=== PATIENT | female | born 1970 | race African-American/Black ===

== ENCOUNTER → 2021-11-19 14:38 | Outpatient (BNVA) | payer OTHER, SELFPAY | PROVIDERS: PCP Nurse Practitioner; Visit Provider Psychiatry & Neurology Neurology | DX: G51.32 Clonic hemifacial spasm, left (principal) | CPT/HCPCS: 64612; J0585 ==

== ENCOUNTER → 2022-03-24 09:26 | Outpatient (BNVA) | payer OTHER, SELFPAY | PROVIDERS: PCP Nurse Practitioner; Visit Provider Psychiatry & Neurology Neurology | DX: G51.32 Clonic hemifacial spasm, left (principal) | CPT/HCPCS: 64612; J0585 ==

== ENCOUNTER → 2022-07-08 09:09 | Outpatient (BNVA) | payer OTHER, SELFPAY | PROVIDERS: PCP Nurse Practitioner; Visit Provider Psychiatry & Neurology Neurology | DX: G51.32 Clonic hemifacial spasm, left (principal) | CPT/HCPCS: 64612; J0585 ==

== ENCOUNTER → 2022-10-31 12:33 | Outpatient (BNVA) | payer OTHER, SELFPAY | PROVIDERS: PCP Nurse Practitioner; Visit Provider Psychiatry & Neurology Neurology | DX: G51.32 Clonic hemifacial spasm, left (principal) | CPT/HCPCS: 64612; J0585 ==

== ENCOUNTER 2023-02-16 12:23 | Outpatient (AMB) | payer OTHER, SELFPAY ==
--- NOTE | 2023-02-16 12:30 | A.OFFVIS_ITS ---
Intake Vital Signs 02/16/23 12:34 Weight 240 lb BP 130/80 Blood Pressure Location Lt brachial Pulse 75 Pulse Source Pulse Oximeter Pulse Oximetry (%) 97 Oxygen Delivery Method Room Air Intake Visit Reasons: Botox (B&B)-confirmed Intake Note: Pt presents today for botox Allergies No Known Allergies Allergy (Verified 02/16/23 12:35) Medication List - Last Reconciled 02/16/23 by Pat Almeida MD amlodipine 10 mg PO DAILY hydrochlorothiazide 25 mg PO DAILY losartan 100 mg PO DAILY ir-fcfnuoq-jsv-iron fm-FA-vitK 18 mg-400 mcg- 25 mcg (One-A-Day Women's Complete(with vit K)) tabs PO onabotulinumtoxinA (Botox) 100 units IM Q90D HPI HPI Comments History of Present Illness Details 52y/o female comes for treatment of her left hemifacial spasm with botox. ??? side effects were explained again and patient agreed to the procedure . - side effects include increased weakness , droopy eyelids weakness of facial muscles etc. ??? Botulinum toxin type A lot no C 1514TC4 expiration November 2024 was diluted with 1 cc of normal saline at a concentration of 10units in 0.1cc. ??? Muscles injected - ??? L lateral canthus 15units ??? Left upper eyelid 5 units ??? Left lateral lower eyelid - 15 units ??? Left zygomaticus major - 10 units ??? Left nasolabial fold - 15 units ??? Left upper lip 5 units left lateral lower lip 5 units left mentalis 10 units ??? Total used- 80units ??? Discarded 20 units PFSH Medical History HTN (hypertension) Hyperlipidemia Obesity Surgical History H/O: hysterectomy Family History Mother Heart disease Father Cancer Social History Alcohol intake: current Alcohol intake frequency: holidays/special occasions only Patient Tobacco Use Status: Former Tobacco user Physical Exam Vital Signs: Last Vital Signs Pulse 75 02/16/23 12:34 BP 130/80 02/16/23 12:34 Pulse Ox 97 02/16/23 12:34 Oxygen Delivery Method Room Air 02/16/23 12:34 Const General: cooperative, healthy appearing, comfortable and no acute distress Nutritional Appearance: obese Neuro Other: left hemifacial spasm Office Procedures Botulinum toxin Injection 78516 - Facial Nerve Procedure code (CPT) selection complete Office Meds onabotulinumtoxinA Performing Provider: Pat Almeida MD Administered by: Pat Almeida MD on 02/16/23 13:02 Dose Route Admin Location Lot Number Expiration Date [place] [employer] Cdl Driver 80 unit subcut [id number] 11/05/24 8796-8575-20 [employer] Comments: see hpi Assessment & Plan Assessment & Plan (1) Hemifacial spasm of left side of face: Code(s): G51.32 - Clonic hemifacial spasm, left Plan Patient tolerated the procedure well she will call with any side effects Orders: Orders AMB Botulinum toxin Injection Today G51.32 - Clonic hemifacial spasm, left Coding Level of Care Code Est Pt Level 1 (22630) Diagnoses Hemifacial spasm of left side of face G51.32 CPT Codes Botox Injection - Botox 2: 28480 - Facial Nerve ([id number])
[2023-02-16 12:34] VITALS: BP 130/80; PULSE 75; O2SAT 97
== END 2023-02-16 12:54 | disposition home or self-care (01) ==
LOC: HO.HSMS 12:23
PROVIDERS: PCP Nurse Practitioner; Visit Provider Psychiatry & Neurology Neurology
DX: G51.32 Clonic hemifacial spasm, left (principal)
CPT/HCPCS: 64612

== ENCOUNTER → 2023-02-16 12:23 | Outpatient (BNVA) | payer OTHER, SELFPAY | PROVIDERS: PCP Nurse Practitioner; Visit Provider Psychiatry & Neurology Neurology | DX: G51.32 Clonic hemifacial spasm, left (principal); Z79.899 Other long term (current) drug therapy | CPT/HCPCS: 64612; J0585 ==

== ENCOUNTER 2023-07-24 09:29 | Outpatient (AMB) | payer OTHER, SELFPAY ==
--- NOTE | 2023-07-24 09:30 | A.OFFVIS_ITS ---
Intake Vital Signs 07/24/23 09:33 Weight 233 lb 2 oz BP 156/88 H Blood Pressure Location Rt brachial Position Sitting Respiration 16 Pulse 88 Pulse Source Pulse Oximeter Pulse Oximetry (%) 98 Oxygen Delivery Method Room Air Intake Visit Reasons: Botox - Conf Intake Note: Pt presents to the office for Botox injections. Organisation And Methods Analyst Required: No Allergies No Known Allergies Allergy (Verified 07/24/23 09:30) Medication List - Last Reconciled 07/24/23 by Pat Almeida MD amlodipine 10 mg PO DAILY hydrochlorothiazide 25 mg PO DAILY losartan 100 mg PO DAILY al-jncxpfs-mkt-iron fm-FA-vitK 18 mg-400 mcg- 25 mcg (One-A-Day Women's Complete(with vit K)) tabs PO onabotulinumtoxinA (Botox) 100 units IM Q90D HPI HPI Comments History of Present Illness Details 52y/o female comes for treatment of her left hemifacial spasm with botox.Patient missed her last appointment due to change in her insurance. Effectiveness of last two botox: Change in intensity of spasms- decreased Change in frequency of spasms- decreased Changes in quality of life- improved Explanation for any gaps in treatment- change in health insurance Have at least three months elapsed since last treatment (Last botox date - frequency of injections)?02/2023 - missed last treatment due to her new insurance ??? side effects were explained again and patient agreed to the procedure . - side effects include increased weakness , droopy eyelids weakness of facial muscles etc. ??? Botulinum toxin type A lot no C 8545C4 expiration November 2025 was diluted with 1 cc of normal saline at a concentration of 10units in 0.1cc. ??? Muscles injected - ??? L lateral canthus 15units ??? Left upper eyelid 5 units ??? Left lateral lower eyelid - 15 units ??? Left zygomaticus major - 10 units ??? Left nasolabial fold - 15 units ??? Left upper lip 5 units left lateral lower lip 5 units left mentalis 10 units ??? Total used- 80units ??? Discarded 20 units PFSH Medical History Hyperlipidemia Obesity HTN (hypertension) Surgical History H/O: hysterectomy Family History Mother Heart disease Father Cancer Social History Alcohol intake: current Alcohol intake frequency: holidays/special occasions only Patient Tobacco Use Status: Former Tobacco user Physical Exam Vital Signs: Last Vital Signs Pulse 88 07/24/23 09:33 Resp 16 07/24/23 09:33 BP 156/88 H 07/24/23 09:33 Pulse Ox 98 07/24/23 09:33 Oxygen Delivery Method Room Air 07/24/23 09:33 Const General: cooperative, healthy appearing, comfortable and no acute distress Nutritional Appearance: obese Neuro Other: left hemifacial spasm Office Procedures Botulinum toxin Injection 96860 - Facial Nerve Procedure code (CPT) selection complete Office Meds onabotulinumtoxinA 100 unit solution for injection Performing Provider: Pat Almeida MD [place] [facility] [place] [facility] Administered by: Pat Almeida MD on 07/24/23 10:08 Dose Route Admin Location Dispensed Lot Number Expiration Date [facility] Dictating Transcribing Machine Servicer 100 unit subcut 100 units [id number] 11/05/25 7085-7438-37 [employer] Comments: see HPI Assessment & Plan Assessment & Plan (1) Hemifacial spasm of left side of face: Code(s): G51.32 - Clonic hemifacial spasm, left Plan Patient tolerated the procedure well she will call with any side effects Orders: Orders AMB Botulinum toxin Injection Today G51.32 - Clonic hemifacial spasm, left Coding Level of Care Code Est Pt Level 1 (46371) Diagnoses Hemifacial spasm of left side of face G51.32 CPT Codes Botox Injection - Botox 2: 08749 - Facial Nerve ([id number])
[2023-07-24 09:33] VITALS: BP 156/88; PULSE 88; RESP 16; O2SAT 98
== END 2023-07-24 10:04 | disposition home or self-care (01) ==
PROVIDERS: PCP Nurse Practitioner; Visit Provider Psychiatry & Neurology Neurology
DX: G51.32 Clonic hemifacial spasm, left (principal)
CPT/HCPCS: 64612

== ENCOUNTER → 2023-07-24 09:29 | Outpatient (BNVA) | payer OTHER, SELFPAY | PROVIDERS: PCP Nurse Practitioner; Visit Provider Psychiatry & Neurology Neurology | DX: G51.32 Clonic hemifacial spasm, left (principal) | CPT/HCPCS: 64612; 99211; J0585 ==

== ENCOUNTER 2023-10-30 12:59 | Outpatient (AMB) | payer OTHER, SELFPAY ==
--- NOTE | 2023-10-30 13:09 | A.OFFVIS_ITS ---
Intake Vital Signs 10/30/23 13:10 Weight 230 lb BP 148/90 H Blood Pressure Location Rt brachial Position Sitting Respiration 17 Pulse 78 Pulse Source Pulse Oximeter Pulse Oximetry (%) 99 Oxygen Delivery Method Room Air Intake Visit Reasons: Botox-LVM Intake Note: Pt presents tot he office for Botox injections. 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 Effectiveness of last two botox: Change in intensity of spasms- decreased Change in frequency of spasms- decreased Changes in quality of life- improved Explanation for any gaps in treatment- change in health insurance Have at least three months elapsed since last treatment (Last botox date - frequency of injections)?02/2023 - missed last treatment due to her new insurance ??? side effects were explained again and patient agreed to the procedure . - side effects include increased weakness , droopy eyelids weakness of facial muscles etc. ??? Botulinum toxin type A lot no C 8661C3 expiration December 2025 was diluted with 1 cc of normal saline at a concentration of 10units in 0.1cc. ??? Muscles injected - ??? L lateral canthus 15units ??? Left upper eyelid 5 units ??? Left lateral lower eyelid - 15 units ??? Left zygomaticus major - 10 units ??? Left nasolabial fold - 15 units ??? Left upper lip 5 units left lateral lower lip 5 units left mentalis 10 units ??? Total used- 80units ??? Discarded 20 units PFSH Medical History Hyperlipidemia Obesity HTN (hypertension) Surgical History H/O: hysterectomy Family History Mother Heart disease Father Cancer Social History Alcohol intake: current Alcohol intake frequency: holidays/special occasions only Patient Tobacco Use Status: Former Tobacco user Physical Exam Vital Signs: Last Vital Signs Pulse 78 10/30/23 13:10 Resp 17 10/30/23 13:10 BP 148/90 H 10/30/23 13:10 Pulse Ox 99 10/30/23 13:10 Oxygen Delivery Method Room Air 10/30/23 13:10 Const General: cooperative, healthy appearing, comfortable and no acute distress Nutritional Appearance: obese Neuro Other: left hemifacial spasm Office Procedures Botulinum toxin Injection 83963 - Facial Nerve Procedure code (CPT) selection complete Office Meds onabotulinumtoxinA 100 unit solution for injection Performing Provider: Pat Almeida MD Performing Location: [facility] – [place] [facility] Administered by: Pat Almeida MD on 10/30/23 13:53 Dose Route Admin Location Dispensed Lot Number Expiration Date [facility] Fisher Diving 90 unit subcut 100 units [id number] 12/05/25 5355-8076-38 [employer] Comments: see HPI Assessment & Plan Assessment & Plan (1) Hemifacial spasm of left side of face: Code(s): G51.32 - Clonic hemifacial spasm, left Plan Patient tolerated the procedure well she will call with any side effects Orders: Orders AMB Botulinum toxin Injection Today G51.32 - Clonic hemifacial spasm, left Coding Level of Care Code Est Pt Level 1 (10941) Diagnoses Hemifacial spasm of left side of face G51.32 CPT Codes Botox Injection - Botox 2: 85017 - Facial Nerve ([id number])
[2023-10-30 13:10] VITALS: BP 148/90; PULSE 78; RESP 17; O2SAT 99
== END 2023-10-30 13:27 | disposition home or self-care (01) ==
PROVIDERS: PCP Nurse Practitioner; Visit Provider Psychiatry & Neurology Neurology
DX: G51.32 Clonic hemifacial spasm, left (principal)
CPT/HCPCS: 64612

== ENCOUNTER → 2023-10-30 12:59 | Outpatient (BNVA) | payer OTHER, SELFPAY | PROVIDERS: PCP Nurse Practitioner; Visit Provider Psychiatry & Neurology Neurology | DX: G51.32 Clonic hemifacial spasm, left (principal); Z79.899 Other long term (current) drug therapy | CPT/HCPCS: 64612; 99211; J0585 ==

== ENCOUNTER 2024-02-14 14:36 | Outpatient (AMB) | payer OTHER, SELFPAY ==
--- NOTE | 2024-02-14 15:02 | MHC.OFFVIS ---
Vital Signs 02/14/24 15:03 Weight 230 lb BP 182/100 H Blood Pressure Location Rt brachial Position Sitting Respiration 16 Pulse 84 Pulse Source Pulse Oximeter Pulse Oximetry (%) 98 Oxygen Delivery Method Room Air Intake Visit Reasons: Botox - Confirmed Intake Note: Pt presents to the office for Botox injections. Mica Paster Required: No Allergies No Known Allergies Allergy (Verified 02/14/24 15:02) Medication List - Last Reconciled 02/14/24 by Pat Almeida MD amlodipine 10 mg PO DAILY hydrochlorothiazide 25 mg PO DAILY losartan 100 mg PO DAILY aw-xecbipv-soo-iron fm-FA-vitK 18 mg-400 mcg- 25 mcg (One-A-Day Women's Complete(with vit K)) tabs PO onabotulinumtoxinA (Botox) 100 units IM Q90D HPI Comments Details: 53y/o female comes for treatment of her left hemifacial spasm with botox.Patient missed her last appointment due to change in her insurance. Effectiveness of last two botox: Change in intensity of spasms- decreased Change in frequency of spasms- decreased Changes in quality of life- improved Explanation for any gaps in treatment- change in health insurance Have at least three months elapsed since last treatment (Last botox date - frequency of injections)? side effects were explained again and patient agreed to the procedure . - side effects include increased weakness , droopy eyelids weakness of facial muscles etc. ??? Botulinum toxin type A lot no C 8700C4 expiration January 2026 was diluted with 1 cc of normal saline at a concentration of 10units in 0.1cc. ??? Muscles injected - ??? L lateral canthus 15units ??? Left upper eyelid 5 units ??? Left lateral lower eyelid - 15 units ??? Left zygomaticus major - 10 units ??? Left nasolabial fold - 15 units ??? Left upper lip 5 units left lateral lower lip 5 units left mentalis 10 units ??? Total used- 80units ??? Discarded 20 units PFSH Medical History Hyperlipidemia Obesity HTN (hypertension) Surgical History H/O: hysterectomy Family History Mother Heart disease Father Cancer Social History Alcohol intake: current Alcohol intake frequency: holidays/special occasions only Patient Tobacco Use Status: Former Tobacco user Physical Exam Vital Signs: Last Vital Signs Pulse 84 02/14/24 15:03 Resp 16 02/14/24 15:03 BP 182/100 H 02/14/24 15:03 Pulse Ox 98 02/14/24 15:03 Oxygen Delivery Method Room Air 02/14/24 15:03 Const General: cooperative, healthy appearing, comfortable and no acute distress Nutritional Appearance: obese Neuro Other: left hemifacial spasm Office Procedures Botulinum toxin Injection 14290 - Facial Nerve Procedure code (CPT) selection complete Office Meds onabotulinumtoxinA 100 unit solution for injection Performing Provider: Pat Almeida MD [place] [facility] [place] [facility] Administered by: Pat Almeida MD on 02/14/24 15:30 Dose Route Admin Location Dispensed Lot Number Expiration Date [facility] Washer Operator 80 unit subcut 100 units [id number] 01/05/26 8885-3718-59 [employer] Comments: see HPI Assessment & Plan Assessment & Plan (1) Hemifacial spasm of left side of face: Code(s): G51.32 - Clonic hemifacial spasm, left Category: Medical Plan Patient tolerated the procedure well she will call with any side effects Orders: Orders AMB Botulinum toxin Injection Today G51.32 - Clonic hemifacial spasm, left Medications: New onabotulinumtoxinA 100 units subcut ONCE 1 ea 0RF hemifacial spasm G51.32 - Clonic hemifacial spasm, left Coding Level of Care Code Est Pt Level 1 (13565) Diagnoses Hemifacial spasm of left side of face G51.32 CPT Codes Botox Injection - Botox 2: 88785 - Facial Nerve ([id number])
[2024-02-14 15:03] VITALS: BP 182/100; PULSE 84; RESP 16; O2SAT 98
== END 2024-02-14 15:19 | disposition home or self-care (01) ==
PROVIDERS: PCP Nurse Practitioner; Visit Provider Psychiatry & Neurology Neurology
DX: G51.32 Clonic hemifacial spasm, left (principal)
CPT/HCPCS: 64612

== ENCOUNTER → 2024-02-14 14:36 | Outpatient (BNVA) | payer OTHER, SELFPAY | PROVIDERS: PCP Nurse Practitioner; Visit Provider Psychiatry & Neurology Neurology | DX: G51.32 Clonic hemifacial spasm, left (principal) | CPT/HCPCS: 64612; 99211; J0585 ==

== ENCOUNTER 2024-05-22 15:26 | Outpatient (AMB) | payer OTHER, SELFPAY ==
--- NOTE | 2024-05-22 15:37 | MHC.OFFVIS ---
Vital Signs 05/22/24 15:41 Height 5 ft 4 in Weight 240 lb BMI 41.2 Intake Visit Reasons: Botox - Confirmed Intake Note: patient following up for botox injection Allergies No Known Allergies Allergy (Verified 05/22/24 15:41) Medication List - Last Reconciled 05/22/24 by Pat Almeida MD amlodipine 10 mg PO DAILY hydrochlorothiazide 25 mg PO DAILY losartan 100 mg PO DAILY pe-ppeehra-jpk-iron fm-FA-vitK 18 mg-400 mcg- 25 mcg (One-A-Day Women's Complete(with vit K)) tabs PO onabotulinumtoxinA (Botox) 100 units IM Q90D HPI Comments Details: 53y/o female comes for treatment of her left hemifacial spasm with botox.Patient missed her last appointment due to change in her insurance. Effectiveness of last two botox: Change in intensity of spasms- decreased Change in frequency of spasms- decreased Changes in quality of life- improved Explanation for any gaps in treatment- change in health insurance Have at least three months elapsed since last treatment (Last botox date - frequency of injections)? side effects were explained again and patient agreed to the procedure . - side effects include increased weakness , droopy eyelids weakness of facial muscles etc. ??? Botulinum toxin type A lot no C 9044C4 expiration Jun 2026 was diluted with 1 cc of normal saline at a concentration of 10units in 0.1cc. ??? Muscles injected - ??? L lateral canthus 15units ??? Left medial lower eyelid 5 units ??? Left lateral lower eyelid - 15 units ??? Left zygomaticus major - 10 units ??? Left nasolabial fold - 15 units ??? Left upper lip 5 unit left lateral lower lip 5 units left mentalis 10 units ??? Total used- 80units ??? Discarded 20 units PFSH Medical History Hyperlipidemia Obesity HTN (hypertension) Surgical History H/O: hysterectomy Family History Mother Heart disease Father Cancer Social History Alcohol intake: current Alcohol intake frequency: holidays/special occasions only Patient Tobacco Use Status: Former Tobacco user Physical Exam Vital Signs: BMI result Body Mass Index 41.2 Const General: cooperative, healthy appearing, comfortable and no acute distress Nutritional Appearance: obese Neuro Other: left hemifacial spasm Office Procedures Botulinum toxin Injection 33657 - Facial Nerve Procedure code (CPT) selection complete Office Meds onabotulinumtoxinA 100 unit solution for injection Performing Provider: Pat Almeida MD Performing Location: [facility] [place] [facility] Administered by: Pat Almeida MD on 05/22/24 15:52 Dose Route Admin Location Dispensed Lot Number Expiration Date [facility] Guard Range 80 unit subcut 100 units [id number] 06/07/26 7345-7471-41 [employer] Comments: see hpi Assessment & Plan Assessment & Plan (1) Hemifacial spasm of left side of face: Code(s): G51.32 - Clonic hemifacial spasm, left Category: Medical Plan Patient tolerated the procedure well she will call with any side effects Orders: Orders AMB Botulinum toxin Injection Today G51.32 - Clonic hemifacial spasm, left Medications: New onabotulinumtoxinA 100 units subcut ONCE 1 ea 0RF hemifacial spasm G51.32 - Clonic hemifacial spasm, left Coding Level of Care Code Est Pt Level 1 (01688) Diagnoses Hemifacial spasm of left side of face G51.32 CPT Codes Botox Injection - Botox 2: 43933 - Facial Nerve ([id number])
[2024-05-22 15:41] VITALS: BMI 41.2
== END 2024-05-22 15:51 | disposition home or self-care (01) ==
PROVIDERS: PCP Nurse Practitioner; Visit Provider Psychiatry & Neurology Neurology
DX: G51.32 Clonic hemifacial spasm, left (principal)
CPT/HCPCS: 64612

== ENCOUNTER → 2024-05-22 15:26 | Outpatient (BNVA) | payer OTHER, SELFPAY | PROVIDERS: PCP Nurse Practitioner; Visit Provider Psychiatry & Neurology Neurology | DX: G51.32 Clonic hemifacial spasm, left (principal) | CPT/HCPCS: 64612; 99211; J0585 ==

== ENCOUNTER 2024-08-22 15:26 | Outpatient (AMB) | payer OTHER, SELFPAY ==
--- NOTE | 2024-08-22 15:42 | MHC.OFFVIS ---
Vital Signs 08/22/24 15:43 Height 5 ft 4 in Weight 235 lb BMI 40.3 Intake Visit Reasons: Botox Intake Note: Patient presents for botox injection Allergies No Known Allergies Allergy (Verified 08/22/24 15:43) PFSH Medical History Hyperlipidemia Obesity HTN (hypertension) Surgical History H/O: hysterectomy Family History Mother Heart disease Father Cancer Social History Alcohol intake: current Alcohol intake frequency: holidays/special occasions only Patient Tobacco Use Status: Former Tobacco user Coding
[2024-08-22 15:43] VITALS: BMI 40.3
--- NOTE | 2024-08-22 15:44 | A.OFFVIS_ITS ---
Vital Signs 08/22/24 15:43 08/22/24 15:46 Height 5 ft 4 in Weight 235 lb BMI 40.3 40.3 Intake Visit Reasons: Botox Allergies No Known Allergies Allergy (Verified 08/22/24 15:43) Medication List - Last Reconciled 08/22/24 by Pat Almeida MD amlodipine 10 mg PO DAILY hydrochlorothiazide 25 mg PO DAILY losartan 100 mg PO DAILY mm-vlymvmq-mds-iron fm-FA-vitK 18 mg-400 mcg- 25 mcg (One-A-Day Women's Complete(with vit K)) tabs PO onabotulinumtoxinA (Botox) 100 units IM Q90D HPI Comments Details: 53y/o female comes for treatment of her left hemifacial spasm with botox. Effectiveness of last two botox: Change in intensity of spasms- decreased Change in frequency of spasms- decreased Changes in quality of life- improved Explanation for any gaps in treatment- change in health insurance Have at least three months elapsed since last treatment (Last botox date - frequency of injections)? side effects were explained again and patient agreed to the procedure . - side effects include increased weakness , droopy eyelids weakness of facial muscles etc. ??? Botulinum toxin type A lot no D 1384EH0 expiration October 2026 was diluted with 1 cc of normal saline at a concentration of 10units in 0.1cc. ??? Muscles injected - ??? L lateral canthus 15units ??? Left medial lower eyelid 5 units ??? Left lateral lower eyelid - 15 units ??? Left zygomaticus major - 10 units ??? Left nasolabial fold - 15 units ??? Left upper lip 5 unit left lateral lower lip 5 units left mentalis 10 units ??? Total used- 80units ??? Discarded 20 units PFSH Medical History Hyperlipidemia Obesity HTN (hypertension) Surgical History H/O: hysterectomy Family History Mother Heart disease Father Cancer Social History Alcohol intake: current Alcohol intake frequency: holidays/special occasions only Patient Tobacco Use Status: Former Tobacco user Physical Exam Vital Signs: BMI result Body Mass Index 40.3 Const General: cooperative, healthy appearing, comfortable and no acute distress Nutritional Appearance: obese Neuro Other: left hemifacial spasm Office Procedures Botulinum toxin Injection 30013 - Facial Nerve Procedure code (CPT) selection complete Office Meds onabotulinumtoxinA 100 unit solution for injection Performing Provider: Pat Almeida MD Performing Location: [facility] [place] [facility] Administered by: Pat Almeida MD on 08/22/24 15:53 Dose Route Admin Location Dispensed Lot Number Expiration Date [facility] Supervisory Training Specialist 80 unit subcut 100 units 4959-1685-73 [employer]OT[employer] Comments: see hpi Quality Reporting (2019) Adult ([facility] 138/09/28/68) Body Mass Index: 40.3 Assessment & Plan Assessment & Plan (1) Hemifacial spasm of left side of face: Code(s): G51.32 - Clonic hemifacial spasm, left Category: Medical Plan Patient tolerated the procedure well she will call with any side effects Orders: Orders AMB Botulinum toxin Injection Today G51.32 - Clonic hemifacial spasm, left Medications: New onabotulinumtoxinA 100 units subcut ONCE 1 ea 0RF hemifacial spasm G51.32 - Clonic hemifacial spasm, left Coding Level of Care Code Est Pt Level 1 (77466) Diagnoses Hemifacial spasm of left side of face G51.32 CPT Codes Botox Injection - Botox 2: 44736 - Facial Nerve ([id number])
[2024-08-22 15:46] VITALS: BMI 40.3
== END 2024-08-22 16:08 | disposition home or self-care (01) ==
PROVIDERS: PCP Nurse Practitioner; Visit Provider Psychiatry & Neurology Neurology
DX: G51.32 Clonic hemifacial spasm, left (principal)
CPT/HCPCS: 64612

== ENCOUNTER → 2024-08-22 15:26 | Outpatient (BNVA) | payer OTHER, SELFPAY | PROVIDERS: PCP Nurse Practitioner; Visit Provider Psychiatry & Neurology Neurology | DX: G51.32 Clonic hemifacial spasm, left (principal) | CPT/HCPCS: 64612; 99211; J0585 ==

== ENCOUNTER 2024-11-26 15:43 | Outpatient (AMB) | payer OTHER, SELFPAY ==
[2024-11-26 15:46] VITALS: PULSE 83; O2SAT 98
--- NOTE | 2024-11-26 15:46 | MHC.OFFVIS ---
Vital Signs 11/26/24 15:46 Height 5 ft 4 in Pulse 83 Pulse Source Pulse Oximeter Pulse Oximetry (%) 98 Oxygen Delivery Method Room Air Intake Visit Reasons: Botox Intake Note: Patient presents for botox injection. pharmacy supplied Allergies No Known Allergies Allergy (Verified 11/26/24 15:49) Medication List - Last Reconciled 11/27/24 by Pat Almeida MD amlodipine 10 mg PO DAILY atorvastatin 20 mg PO DAILY hydrochlorothiazide 25 mg PO DAILY losartan 100 mg PO DAILY bp-mxcaxyu-dbx-iron fm-FA-vitK 18 mg-400 mcg- 25 mcg (One-A-Day Women's Complete(with vit K)) tabs PO onabotulinumtoxinA (Botox) 100 units IM Q90D HPI Comments Details: 53y/o female comes for treatment of her left hemifacial spasm with botox. Effectiveness of last two botox: Change in intensity of spasms- decreased Change in frequency of spasms- decreased Changes in quality of life- improved Explanation for any gaps in treatment- change in health insurance Have at least three months elapsed since last treatment (Last botox date - frequency of injections)? side effects were explained again and patient agreed to the procedure . - side effects include increased weakness , droopy eyelids weakness of facial muscles etc. ??? Botulinum toxin type A lot no [id number] expiration December 2026 was diluted with 1 cc of normal saline at a concentration of 10units in 0.1cc. ??? Muscles injected - ??? L lateral canthus 15units ??? Left medial lower eyelid 5 units ??? Left lateral lower eyelid - 15 units ??? Left zygomaticus major - 10 units ??? Left nasolabial fold - 15 units ??? Left upper lip 5 unit left lateral lower lip 5 units left mentalis 10 units ??? Total used- 80units ??? Discarded 20 units PFSH Medical History Hyperlipidemia Obesity HTN (hypertension) Surgical History H/O: hysterectomy Family History Mother Heart disease Father Cancer Social History Alcohol intake: current Alcohol intake frequency: holidays/special occasions only Patient Tobacco Use Status: Former Tobacco user Physical Exam Vital Signs: Last Vital Signs Pulse 83 11/26/24 15:46 Pulse Ox 98 11/26/24 15:46 Oxygen Delivery Method Room Air 11/26/24 15:46 Const General: cooperative, healthy appearing, comfortable and no acute distress Nutritional Appearance: obese Neuro Other: left hemifacial spasm Office Procedures Botulinum toxin Injection 51962 - Facial Nerve Procedure code (CPT) selection complete Office Meds onabotulinumtoxinA 100 unit solution for injection Performing Provider: Pat Almeida MD Performing Location: [facility] [place] [facility] Administered by: Pat Almeida MD on 11/27/24 09:52 Dose Route Admin Location Dispensed Lot Number Expiration Date [facility] Senior Database Programmer 100 unit subcut 100 units [id number] ALLERGAN/BOTOX Comments: see hpi Assessment & Plan Assessment & Plan (1) Hemifacial spasm of left side of face: Code(s): G51.32 - Clonic hemifacial spasm, left Category: Medical Plan Patient tolerated the procedure well she will call with any side effects Orders: Orders AMB Botulinum toxin Injection 11/26/24 G51.32 - Clonic hemifacial spasm, left Medications: New onabotulinumtoxinA 100 units subcut ONCE 1 ea 0RF hemifacial spasm G51.32 - Clonic hemifacial spasm, left Coding Level of Care Code Est Pt Level 1 (74864) Diagnoses Hemifacial spasm of left side of face G51.32 CPT Codes Botox Injection - Botox 2: 91475 - Facial Nerve ([id number])
--- OUTSIDE RECORDS SUMMARY | 2024-11-26 18:30 | XMS_ITS | Clinical Summary ---
Author Organization [place] [address] [facility] Building Address [address] [place] [address] Phone Care Team Providers Care Special Deputy Sheriff Name Role Phone Cielo Pickarda Primary Care Provider [phone] Allergies Active Allergy Reactions Criticality Noted Date Comments Lisinopril Cough Medium 06/03/2015 Medications MULTIVITAMIN ORAL Take 1 Tab by mouth daily. Active amLODIPine (NORVASC) 10 mg tabletIndications :Essential hypertension Take 1 tablet (10 mg total) by mouth 1 (one) time each day. 90 each 1 07/09/2024 01/06/20 25 Active hydroCHLOROthiazi de (HYDRODIURIL) 25 mg tabletIndications :Essential hypertension Take 1 tablet (25 mg total) by mouth 1 (one) time each day. 90 each 1 07/09/2024 01/06/20 25 Active losartan (COZAAR) 100 mg tabletIndications :Essential hypertension Take 1 tablet (100 mg total) by mouth 1 (one) time each day. 90 each 1 07/09/2024 01/06/20 25 Active atorvastatin (LIPITOR) 20 mg tablet TAKE 1 TABLET (20 MG TOTAL) BY MOUTH ONE TIME EACH DAY 90 tablet 1 09/04/2024 Active Active Problems Problem Noted Date Diagnosed Date Essential hypertension 08/26/2016 Obesity (BMI 30-39.9) 08/26/2016 Hyperlipidemia 01/06/2016 Benign neoplasm of adrenal gland 06/24/2014 Encounters Date Type Department Care Team Description 09/03/2024 2:45 PM EST [facility] [address] [facility] [place] [address] Lucia Lizarraga, SEBLE Essential hypertension (Primary Dx); Sinus tachycardia; Mixed hyperlipidemia; Hemifacial spasm of left side of face from Last 3 Months Immunizations Name Administration Dates Next Due Influenza Quadravalent, MDCK , 0.5ml, with preservative (Flucelvax) 6mo and older 05/05/2017 Influenza trivalent, 0.5mL, preservative free (Fluarix; FluLaval; Fluzone) ages 6mo and older (Afluria) 3 years and older 06/03/2015,05/22/2014,05/17/2014 Influenza trivalent, MDCK, 0 .5mL, preservative free (Flucelvax) 6mo and older 07/09/2024 Td, Unspecified 02/26/2004 Tdap Tetanus diptheria acell ular pertussis (Boostrix; Adacel) 7yo and older 07/09/2024,05/17/2014 Surgical History Surgery Date Site/Laterality Comments OTHER SURGICAL HISTORY 2004 PROCEDURE: HISTORICAL TOTAL HYSTERECTOMY W/O BSO Medical History Medical History Date Comments Pure hypercholesterolemia 01/06/2016 DX:Pur e hypercholesterolemia Family History Medical History Relation Name Comments Breast cancer Neg Hx Colon cancer Neg Hx Ovarian cancer Neg Hx Social History Tobacco Use Types Packs/Day Years Used Date Smoking Tobacco: Former Cigarettes Q uit: 08/07/2014 Smokeless Tobacco: Never Tobacco Cessation:Counseling Given: Not Answered Alcohol Use Standard Drinks/Week Comments Yes 0 (1 standard drink = 0.6 oz pur e alcohol) Housing Instability Answer Date Recorde d Are you worried that in the next 2 months you may not have stable housing? No 07/02/2024 Food Access & Nutrition Answer Date Rec orded Do you have access to a vari ety of food including fruits and vegetables? No 07/02/2024 Access to Healthcare Answer Date Record ed Within the last 3 months, zane gaytan many times did you visit the emergency department for your medical care? 0 07/02/2024 Health Literacy Answer Date Recorded How often do you need to hav e someone help you when you read instructions, pamphlets, or other written material from your doctor or pharmacy? Never 07/02/2024 Caregiver: How often do you need to have someone help you when you read instructions, pamphlets, or other written material from your doctor or pharmacy? Not on file 07/02/2024 Financial Risk Answer Date Recorded How hard is it for you to pa y for the very basics like food, housing, medical care, and air conditioning / heating? Somewhat hard 07/02/2024 Transportation Answer Date Recorded Has the lack of transportati on kept you from meetings, work, or from getting things needed for daily living? No Has the lack of transportati on kept you from medical appointments or from getting medications? No 07/02/2024 Social Isolation Answer Date Recorded How often do you feel lonely or isolated from th ose around you? Rarely 07/02/2024 Food Risk Answer Date Recorded Within the past 12 months we worried whether our food would run out before we got money to buy more. Never true 07/02/2024 Within the past 12 months th e food we bought just didn't last and we didn't have money to get more. Never true 07/02/2024 Dependent Care Answer Date Recorded Do you need help finding or paying for care for your loved ones. For example, child welfare worker or elderly care for an older adult? No 07/02/2024 Education Answer Date Recorded Do you think completing more education or training, like finishing a GED, going to college, or learning a trade, would be helpful for you? No 07/02/2024 Employment and Income Answer Date Recor ded During the last four weeks, have you been actively looking for work? No 07/02/2024 Living Situation Answer Date Recorded What is your living situation? 1 09/01/2023 Comments No Sex and Gender Information Value Date Recorded Sex Assigned at Not on file Legal Sex Female 8:22 PM EST Gender Identity Not on file Sexual Orientation Not on file Obstetrics History Last Filed Vital Signs Vital Sign Reading Time Taken Comments Blood Pressure 134/86 09/03/2024 2:50 PM EST Pulse 111 09/03/2024 2:50 PM EST Temperature - - Respiratory Rate - - Oxygen Saturation - - Inhaled Oxygen Concentration - - Weight 105 kg (232 lb 8 oz) 09/03/2024 2:[address] Height 162.6 cm (5' 4 ) 07/09/2024 3:44 PM EST Body Mass Index 39.91 07/09/2024 3:44 PM EST Plan of Treatment Upcoming Encounters Date Type Department Care Team (Late st Contact Info) Description 03/03/2025 3:00 PM EDT Office Visit Internal Medicine - [facility] [address] [place] [address] Lucia Lizarraga NP [address] [place] [address] 03/22/2025 9:30 AM EDT Appointment Radiology Department - [address] [address] Health Maintenance Due Date Last Done Comments Hepatitis B Vaccines (1 of 3 - 19+ 3-dose series) 1988 Pneumococcal Vaccine: 50+ Years (1 of 1 - PCV) 11/28/2019 Zoster Vaccines (1 of 2) 11/28/2019 COVID-19 Vaccine (4 - season) 2024 10/22/2022, 2020, 11/04/2020 Depression Screening 07/02/2025 07/02/2024 Social Influencers of Health Screening 07/02/2025 07/02/2024 Hypertension/CHF/CAD Annual BMP Blood Test 07/09/2025 07/09/2024, 12/11/2020 Breast Cancer Screening 03/09/2026 03/09/20 24, 03/09/2024, 02/11/2023, Additional history exists Cholesterol Screening (Lipid Panel) 07/09/2029 07/09/2024, 12/11/2020 Colorectal Cancer Screening: Colonoscopy 03/31/2031 03/31/2021 DTaP,Tdap,and Td Vaccines (4 - Td or Tdap) 07/09/2034 07/09/2024, 05/17/2014, 02/26/2004 HIV Screening Completed 05/02/2014 Hepatitis C Screening Completed 07/09/2024 Influenza Vaccine Completed 07/09/2024, , 06/03/2015, Additional history exists HIB Vaccines Aged Out No longer eligi ble based on patient's age to complete this topic HPV Vaccines Aged Out No longer eligi ble based on patient's age to complete this topic Hepatitis A Vaccines Aged Out No long er eligible based on patient's age to complete this topic IPV Vaccines Aged Out No longer eligi ble based on patient's age to complete this topic MMR Vaccines Aged Out No longer eligi ble based on patient's age to complete this topic Meningococcal ACWY Vaccine Aged Out N o longer eligible based on patient's age to complete this topic Meningococcal B Vaccine Aged Out No l onger eligible based on patient's age to complete this topic Pneumococcal Vaccine: Pediatrics (0 to 5 Years) and At-Risk Patients (6 to 64 Years) Aged Out No longer eligible based on patient's age to complete this topic RSV Immunization Patients Under 20 months Aged Out No longer eligible based on patient's age to complete this topic Varicella Vaccines Aged Out No longer eligible based on patient's age to complete this topic Procedures Procedure Name Priority Date/Time Associated Diagnosis Comments ECG 12-LEAD Routine 09/03/2024 8:29 PM EST Essential hypertension Sinus tachycardia HEPATITIS C ANTIBODY Routine 07/09/2024 4:19 PM EST Encounter for hepatitis C screening test for low risk patient BASIC METABOLIC PANEL Routine 07/09/2024 4:19 PM EST Screening for cholesterol level LIPID PANEL WITH REFLEX TO DIRECT LDL Routine 07/09/2024 4:19 PM EST Screening for cholesterol level SCREENING MAMMOGRAPHY BI 2-VIEW BREAST INC CAD Routine 03/09/2024 2:17 PM EDT Encounter for screening mammogram for malignant neoplasm of breast HM COLONOSCOPY Routine 03/31/2021 HIV SCREENING Routine 05/02/2014 from Last 3 Months or Most Recently Relevant to Health Maintenance Results * ECG 12 lead (09/03/2024 8:29 PM EST) Narrative Lucia Lizarraga NP - 09/03/2024 8:29 PM EST Sinus rhythm Lucia Lizarraga NP ECG ORDERABLES Edited Result - Final * Hepatitis C antibody (07/09/2024 4:19 PM EST) Pathologist [facility] Hepatitis C Antibody Negative Negative LAB CHEMISTRY METHOD 07/09/2024 7:19 PM EST [facility] Blood Venous blood specimen / Unknown Venipuncture / Unknown 07/09/2024 4:19 PM EST 07/09/2024 4:19 PM EST Lucia Lizarraga NP LAB BLOOD ORDERABLES Final Resul t [facility] [address] [place] [address], * (ABNORMAL) Lipid panel with reflex to direct LDL (07/09/2024 4:19 PM EST) Pathologist [facility] Cholesterol 234(H) 0 - 200 mg/dL LAB CHEMISTRY METHOD 07/09/2024 6:34 PM [facility] Triglycerides 240(H) 0 - 150 mg/dL LAB CHEMISTRY METHOD 07/09/2024 6:34 PM EST [facility] HDL 52 >=40 mg/dL LAB CHEMISTRY METHOD 07/09/2024 6:34 PM [facility] LDL Calculated 134(H) 0 - 100 mg/dL LAB CHEMISTRY METHOD 07/09/2024 6:34 PM EST [facility] VLDL Cholesterol Jeffrey 48 mg/dL LAB CHEMISTRY METHOD 07/09/2024 6:34 PM [facility] Non HDL Chol. (LDL+VLDL) 182(H) <145 mg/dL LAB CHEMISTRY METHOD 07/09/2024 6:34 PM [facility] Chol/HDL Ratio 4.5(H) 0.0 - 4.4 LAB CHEMISTRY METHOD 07/09/2024 6:34 PM [facility] Blood Venous blood specimen / Unknown Venipuncture / Unknown 07/09/2024 4:19 PM EST 07/09/2024 4:19 PM EST us Lucia Lizarraga NP LAB BLOOD ORDERABLES Final Resul t [facility] [address] [place] [address], [place] [phone] * Basic metabolic panel (07/09/2024 4:19 PM EST) Sodium 142 133 - 145 mmol/L LAB CHEMISTRY METHOD 07/09/2024 6:32 PM [facility] Potassium 4.3 3.5 - 5.5 mmol/L LAB CHEMISTRY METHOD 07/09/2024 6:32 PM [facility] Chloride 110 96 - 110 mmol/L LAB CHEMISTRY METHOD 07/09/2024 6:32 PM [facility] CO2 26 21 - 32 mmol/L LAB CHEMISTRY METHOD 07/09/2024 6:32 PM [facility] Anion Gap 6 3 - 11 LAB CHEMISTRY METHOD 07/09/2024 6:32 PM [facility] Glucose 95 70 - 100 mg/dL LAB CHEMISTRY METHOD 07/09/2024 6:32 PM [facility] BUN 12 5 - 25 mg/dL LAB CHEMISTRY METHOD 07/09/2024 6:32 PM [facility] Creatinine 0.91 0.50 - 1.10 mg/dL LAB CHEMISTRY METHOD 07/09/2024 6:32 PM [facility] eGFR 75 >=60 mL/min/1. 73m2 LAB CHEMISTRY METHOD 07/09/2024 6:32 PM [facility] Comment:Calculation based on the??Chronic Kidney Disease Epidemiology Collaboration (CKD-EPI) equation refit??without adjustment for race. BUN/Creatinine Ratio 13.2 LAB CHEMISTRY METHOD 07/09/2024 6:32 PM EST [facility] Calcium 10.0 8.5 - 10.5 mg/dL LAB CHEMISTRY METHOD 07/09/2024 6:32 PM EST [facility] Blood Venous blood specimen / Unknown Venipuncture / Unknown 07/09/2024 4:19 PM EST 07/09/2024 4:19 PM EST us Lucia Lizarraga NP LAB BLOOD ORDERABLES Final Resul t [facility] [address] [place] [address], [place] [phone] * SCREENING MAMMOGRAPHY BI 2-VIEW BREAST INC CAD (03/09/2024 2:17 PM EDT) Anatomical Region Laterality Modality Radiographic Cristine ging 02/11/2023 12:3 9 PM EDT Narrative 03/11/2024 8:40 AM EDT This is a summary report. The complete report is available in the patient's medical record. If you cannot access the medical record, please contact the sending organization for a detailed fax or copy. Study: SCREENING MAMMOGRAPHY BI 2-VIEW BREAST INC CAD Technique: Bilateral full-field digital screening mammography is obtained and read in conjunction with computer aided detection. ??Tomosynthesis as well as 2D C-View imaging were obtained. Comparison: Comparison made to multiple priors, most recent February 11, 2023, and most remote May 30, 2014. Breast composition: There are scattered areas of fibroglandular density. Bilateral breasts: No significant masses, suspicious calcifications or other abnormalities are seen in either breast. IMPRESSION: Impression: Bilateral breasts: Negative, no specific mammographic evidence of malignancy. ??Normal interval follow-up is recommended in 12 months. BI-RADS: Category 1: Negative Procedure Note Nelly Browning MD - 07/01/2024 This is a summary report. The complete report is available in thepatient's medical record. If you cannot access the medical record, pleasecontact the sending organization for a detailed fax or copy. Study: SCREENING MAMMOGRAPHY BI 2-VIEW BREAST INC CAD Technique: Bilateral full-field digital screening mammography is obtainedand read in conjunction with computer aided detection. Tomosynthesis aswell as 2D C-View imaging were obtained. Comparison: Comparison made to multiple priors, most recent February 11, 2023,and most remote May 30, 2014. Breast composition: There are scattered areas of fibroglandular density. Bilateral breasts: No significant masses, suspicious calcifications orother abnormalities are seen in either breast. IMPRESSION: Impression: Bilateral breasts: Negative, no specific mammographic evidence ofmalignancy. Normal interval follow-up is recommended in 12 months. BI-RADS: Category 1: Negative Lucia Lizarraga MOLDING ENGINEER IMG XR PROCEDURES Final Result * Colonoscopy (03/31/2021) Colonoscopy No interpretation , Abstracted Anatomical Region Laterality Modality Other Historical Provider HEALTH MAINTENANCE Final Result * HIV Screening (05/02/2014) HIV Screening Abstracted Historical Provider HEALTH MAINTENANCE Final Result from Last 3 Months or Most Recently Relevant to Health Maintenance Insurance [facility] Care Teams Special Deputy Sheriff Relationship Specialty Start Date End Date Mckenzie Pickard DO [address] [place] [phone] PCP - General 02/14/23
== END 2024-11-26 16:03 | disposition home or self-care (01) ==
LOC: HO.HSMS 15:44
PROVIDERS: PCP Nurse Practitioner; Visit Provider Psychiatry & Neurology Neurology
DX: G51.32 Clonic hemifacial spasm, left (principal)
CPT/HCPCS: 64612

== ENCOUNTER → 2024-11-26 15:43 | Outpatient (BNVA) | payer OTHER, SELFPAY | PROVIDERS: PCP Nurse Practitioner; Visit Provider Psychiatry & Neurology Neurology | DX: G51.32 Clonic hemifacial spasm, left (principal) | CPT/HCPCS: 64612; 99211; J0585 ==

== ENCOUNTER 2025-02-25 15:49 | Outpatient (AMB) | payer OTHER, SELFPAY ==
[2025-02-25 16:03] VITALS: BP 130/80; PULSE 95; O2SAT 95; BMI 37.8
--- NOTE | 2025-02-25 16:03 | MHC.OFFVIS ---
Vital Signs 02/25/25 16:03 Height 5 ft 4 in Weight 220 lb BMI 37.8 BP 130/80 Blood Pressure Location Rt brachial Position Sitting Pulse 95 Pulse Source Pulse Oximeter Pulse Oximetry (%) 95 Oxygen Delivery Method Room Air Intake Visit Reasons: BOTOX Accompanied by: Daughter Allergies No Known Allergies Allergy (Verified 02/25/25 16:03) Medication List - Last Reconciled 02/25/25 by Pat Almeida MD amlodipine 10 mg PO DAILY atorvastatin 20 mg PO DAILY hydrochlorothiazide 25 mg PO DAILY losartan 100 mg PO DAILY ln-cmvbiae-iex-iron fm-FA-vitK 18 mg-400 mcg- 25 mcg (One-A-Day Women's Complete(with vit K)) tabs PO onabotulinumtoxinA (Botox) 100 units IM Q90D HPI Comments Details: 54y/o female comes for treatment of her left hemifacial spasm with botox. Effectiveness of last two botox: Change in intensity of spasms- decreased Change in frequency of spasms- decreased Changes in quality of life- improved Explanation for any gaps in treatment- change in health insurance Have at least three months elapsed since last treatment (Last botox date - frequency of injections)? side effects were explained again and patient agreed to the procedure . - side effects include increased weakness , droopy eyelids weakness of facial muscles etc. ??? Botulinum toxin type A lot no [id number] expiration May 2027 was diluted with 1 cc of normal saline at a concentration of 10units in 0.1cc. ??? Muscles injected - ??? L lateral canthus 15units ??? Left medial lower eyelid 5 units ??? Left lateral lower eyelid - 15 units ??? Left zygomaticus major - 10 units ??? Left nasolabial fold - 15 units ??? Left upper lip 5 unit left lateral lower lip 5 units left mentalis 10 units ??? Total used- 80units ??? Discarded 20 units PFSH Medical History Hyperlipidemia Obesity HTN (hypertension) Surgical History H/O: hysterectomy Family History Mother Heart disease Father Cancer Social History Alcohol intake: current Alcohol intake frequency: holidays/special occasions only Patient Tobacco Use Status: Former Tobacco user Physical Exam Const General: cooperative, healthy appearing, comfortable and no acute distress Nutritional Appearance: obese Neuro Other: left hemifacial spasm Office Procedures Botulinum toxin Injection 91736 - Facial Nerve Procedure code (CPT) selection complete Office Meds onabotulinumtoxinA 100 unit solution for injection Performing Provider: Pat Almeida MD Performing Location: [facility] [place] [facility] Administered by: Pat Almeida MD on 02/25/25 16:12 Dose Route Admin Location Dispensed Lot Number Expiration Date [facility] Pocketed Spring Machine Operator 80 unit subcut 100 units [id number] ALLERGAN/BOTOX Total Dispensed Waste 100 units 20 % Comments: see hpi Assessment & Plan Assessment & Plan (1) Hemifacial spasm of left side of face: Code(s): G51.32 - Clonic hemifacial spasm, left Category: Medical Plan Patient tolerated the procedure well she will call with any side effects Orders: Orders AMB Botulinum toxin Injection Today G51.32 - Clonic hemifacial spasm, left Coding Level of Care Code Est Pt Level 1 (83101) Diagnoses Hemifacial spasm of left side of face G51.32 CPT Codes Botox Injection - Botox 2: 38928 - Facial Nerve ([id number])
--- OUTSIDE RECORDS SUMMARY | 2025-02-25 16:32 | XMS_ITS | Clinical Summary ---
Author Organization [place] [address] [facility] Address [address] [place] [address] Phone Care Team Providers Care Senior Instrumentation Engineer Name Role Phone Naya Pickardmana Primary Care Provider [phone] Allergies Active Allergy Reactions Criticality Noted Date Comments Lisinopril Cough Medium 06/03/2015 Medications MULTIVITAMIN ORAL Take 1 Tab by mouth daily. Active atorvastatin (LIPITOR) 20 mg tablet TAKE 1 TABLET (20 MG TOTAL) BY MOUTH ONE TIME EACH DAY 90 tablet 1 09/04/2024 Active hydroCHLOROthiazi de (HYDRODIURIL) 25 mg tabletIndications :Essential hypertension TAKE 1 TABLET BY MOUTH 1 TIME EACH DAY. 90 tablet 1 01/21/2025 Active losartan (COZAAR) 100 mg tabletIndications :Essential hypertension TAKE 1 TABLET BY MOUTH 1 TIME EACH DAY. 90 tablet 1 01/21/2025 Active amLODIPine (NORVASC) 10 mg tabletIndications :Essential hypertension TAKE 1 TABLET BY MOUTH 1 TIME EACH DAY. 90 tablet 1 01/21/2025 Active Active Problems Problem Noted Date Diagnosed Date Essential hypertension 08/26/2016 Obesity (BMI 30-39.9) 08/26/2016 Hyperlipidemia 01/06/2016 Benign neoplasm of adrenal gland 06/24/2014 Immunizations Name Administration Dates Next Due Influenza [...] Record ed Within the last 3 months, ho w many times did you visit the emergency [...] care for your loved ones. For example, children's minister or elderly care for an older adult? [...] PM EDT Office Visit Internal [facility] - [facility] [address] [place] [place] [address] Lucia Lizarraga, SEBLE [address] [place] [address] 03/22/2025 9:30 AM EDT Appointment Radiology Department - [address] [phone] Health Maintenance Due Date Last Done Comments Hepatitis B Vaccines (1 of 3 - 19+ 3-dose series) 1988 Pneumococcal Vaccine: 50+ Years (1 of 1 - PCV) 11/28/2019 Zoster Vaccines (1 of 2) 11/28/2019 COVID-19 Vaccine (4 - 2023- season) 2024 10/22/2022, 2020, 11/04/2020 Influenza Vaccine (#1) 2025 , 05/05/2017, 06/03/2015, Additional history exists Social Influencers of Health Screening 07/02/2025 07/02/2024 Hypertension/CHF/CAD Annual BMP Blood Test 07/09/2025 07/09/2024, 12/11/2020 Breast Cancer Screening 03/09/2026 03/09/20 24, 03/09/2024, 02/11/2023, Additional history exists Cholesterol Screening (Lipid Panel) 07/09/2029 07/09/2024, 12/11/2020 Colorectal Cancer Screening: Colonoscopy 03/31/2031 03/31/2021 DTaP,Tdap,and Td Vaccines (4 - Td or Tdap) 07/09/2034 07/09/2024, 05/17/2014, 02/26/2004 HIV Screening Completed 05/02/2014 Hepatitis C Screening Completed 07/09/2024 Depression Screening Completed 02/24/2025 HIB Vaccines Aged Out No longer eligi [...] Procedure Name Priority Date/Time Associated Diagnosis Comments HEPATITIS C ANTIBODY Routine 07/09/2024 4:19 PM [...] screening mammogram for malignant neoplasm of breast COLONOSCOPY Routine 03/31/2021 HIV SCREENING Routine 05/02/2014 from Last 3 Months or Most Recently Relevant to Health Maintenance Results * Hepatitis C antibody (07/09/2024 4:19 PM EST) Hepatitis C Antibody Negative Negative LAB CHEMISTRY METHOD 07/09/2024 7:19 PM EST [facility] Blood Venous blood specimen / Unknown Venipuncture / Unknown 07/09/2024 4:19 PM EST 07/09/2024 4:19 PM EST us Lucia Lizarraga NP LAB BLOOD ORDERABLES Final Resul t [facility] [address] [place] [address], [place] [phone] * (ABNORMAL) Lipid panel with reflex to direct LDL (07/09/2024 4:19 PM EST) Cholesterol 234(H) 0 - 200 mg/dL LAB CHEMISTRY METHOD 07/09/2024 6:34 PM EST [facility] Triglycerides 240(H) 0 - 150 mg/dL LAB CHEMISTRY METHOD 07/09/2024 6:34 PM [facility] HDL 52 >=40 mg/dL LAB CHEMISTRY METHOD 07/09/2024 6:34 PM [facility] LDL Calculated 134(H) 0 - 100 mg/dL LAB CHEMISTRY METHOD 07/09/2024 6:34 PM [facility] VLDL Cholesterol Jeffrey 48 mg/dL LAB CHEMISTRY METHOD 07/09/2024 6:34 PM [facility] Non HDL Chol. (LDL+VLDL) 182(H) <145 mg/dL LAB CHEMISTRY METHOD 07/09/2024 6:34 PM [facility] Chol/HDL Ratio 4.5(H) 0.0 - 4.4 LAB CHEMISTRY METHOD 07/09/2024 6:34 PM [facility] Blood Venous blood specimen / Unknown Venipuncture / Unknown 07/09/2024 4:19 PM EST 07/09/2024 4:19 PM EST us Lucia Lizarraga NP LAB BLOOD ORDERABLES Final Resul t [facility] [address] [place] [address], * Basic metabolic panel (07/09/2024 4:19 PM EST) Pathologist [facility] Sodium 142 133 - 145 mmol/L LAB CHEMISTRY METHOD 07/09/2024 6:32 PM [facility] Potassium 4.3 3.5 - 5.5 mmol/L LAB CHEMISTRY METHOD 07/09/2024 6:32 PM [facility] Chloride 110 96 - 110 mmol/L LAB CHEMISTRY METHOD 07/09/2024 6:32 PM [facility] CO2 26 21 - 32 mmol/L LAB CHEMISTRY METHOD 07/09/2024 6:32 PM [facility] Anion Gap 6 3 - 11 LAB CHEMISTRY METHOD 07/09/2024 6:32 PM [facility] Glucose 95 70 - 100 mg/dL LAB CHEMISTRY METHOD 07/09/2024 6:32 PM [facility] BUN 12 5 - 25 mg/dL LAB CHEMISTRY METHOD 07/09/2024 6:32 PM [facility] Creatinine 0.91 0.50 - 1.10 mg/dL LAB CHEMISTRY METHOD 07/09/2024 6:32 PM [facility] eGFR 75 >=60 mL/min/1. 73m2 LAB CHEMISTRY METHOD 07/09/2024 6:32 PM [facility] Comment:Calculation based on the Chronic Kidney Disease Epidemiology Collaboration (CKD-EPI) equation refit without adjustment for race. BUN/Creatinine Ratio 13.2 LAB CHEMISTRY METHOD 07/09/2024 6:32 PM [facility] Calcium 10.0 8.5 - 10.5 mg/dL LAB CHEMISTRY METHOD 07/09/2024 6:32 PM [facility] Blood Venous blood specimen / Unknown Venipuncture / Unknown 07/09/2024 4:19 PM EST 07/09/2024 4:19 PM EST us Lucia Lizarraga NP LAB BLOOD ORDERABLES Final Resul t [facility] [address] [place] [address], * SCREENING MAMMOGRAPHY BI 2-VIEW BREAST INC [...] in conjunction with computer aided detection. Tomosynthesis as well as 2D C-View imaging were obtained. Comparison: Comparison made to multiple priors, most recent February 11, 2023, and most remote May 30, 2014. Breast composition: There are scattered areas of fibroglandular density. Bilateral breasts: No significant masses, suspicious calcifications or other abnormalities are seen in either breast. IMPRESSION: Impression: Bilateral breasts: Negative, no specific mammographic evidence of malignancy. Normal interval follow-up is recommended in 12 [...] months. BI-RADS: Category 1: Negative Lucia Lizarraga NP IMG XR PROCEDURES Final Result * Colonoscopy (03/31/2021) Colonoscopy No interpretation , Abstracted Anatomical Region Laterality Modality Other Historical Provider HEALTH MAINTENANCE Final Result * HIV Screening (05/02/2014) HIV Screening Abstracted us Historical Provider HEALTH MAINTENANCE Final Result from Last 3 Months or Most Recently Relevant to Health Maintenance Insurance [facility] Care Teams Senior Instrumentation Engineer Relationship Specialty Start Date End Date Mckenzie Pickard DO [place] [address] PCP - General 02/14/23
--- OUTSIDE RECORDS SUMMARY | 2025-02-25 16:32 | XMS_ITS ---
Author Name [facility] Organization Unknown Care Team Organization Name Specialty Phone Email Start Date End Da te [facility] Femi Arias Primary Care 06/14/20222023
== END 2025-02-25 16:13 | disposition home or self-care (01) ==
LOC: HO.HSMS 15:50
PROVIDERS: PCP Nurse Practitioner; Visit Provider Psychiatry & Neurology Neurology
DX: G51.32 Clonic hemifacial spasm, left (principal)
CPT/HCPCS: 64612

== ENCOUNTER → 2025-02-25 15:49 | Outpatient (BNVA) | payer OTHER, SELFPAY | PROVIDERS: PCP Nurse Practitioner; Visit Provider Psychiatry & Neurology Neurology | DX: G51.32 Clonic hemifacial spasm, left (principal) | CPT/HCPCS: 64612; 99211; J0585 ==

== ENCOUNTER 2025-05-27 15:27 | Outpatient (AMB) | payer OTHER, SELFPAY ==
[2025-05-27 15:39] VITALS: BP 152/100; PULSE 86; O2SAT 99; BMI 39.6
--- NOTE | 2025-05-27 15:39 | MHC.OFFVIS ---
Vital Signs 05/27/25 15:39 Height 5 ft 4 in Weight 231 lb BMI 39.6 BP 152/100 H Blood Pressure Location Rt brachial Position Sitting Pulse 86 Pulse Source Pulse Oximeter Pulse Oximetry (%) 99 Oxygen Delivery Method Room Air Intake Visit Reasons: 3mon Botox follow-up Intake Note: Botox 100 Senior Product Marketing Manager Required: No Accompanied by: Self / Same As Patient Allergies No Known Allergies Allergy (Verified 05/27/25 15:46) Medication List - Last Reconciled 05/27/25 by Pat Almeida MD amlodipine 10 mg PO DAILY atorvastatin 20 mg PO DAILY hydrochlorothiazide 25 mg PO DAILY losartan 100 mg PO DAILY tb-qhfolzw-ddc-iron fm-FA-vitK 18 mg-400 mcg- 25 mcg (One-A-Day Women's Complete(with vit K)) tabs PO onabotulinumtoxinA (Botox) 100 units IM Q90D HPI Comments Details: 54y/o female comes for treatment of her left hemifacial spasm with botox. Effectiveness of last two botox: Change in intensity of spasms- decreased Change in frequency of spasms- decreased Changes in quality of life- improved Explanation for any gaps in treatment- change in health insurance Have at least three months elapsed since last treatment (Last botox date - frequency of injections)? side effects were explained again and patient agreed to the procedure . - side effects include increased weakness , droopy eyelids weakness of facial muscles etc. ??? Botulinum toxin type A lot no [id number] expiration Jun 2027 was diluted with 1 cc of normal saline at a concentration of 10units in 0.1cc. ??? Muscles injected - ??? L lateral canthus 15units ??? Left medial lower eyelid 5 units ??? Left lateral lower eyelid - 15 units ??? Left zygomaticus major - 10 units ??? Left nasolabial fold - 15 units ??? Left upper lip 5 unit left lateral lower lip 5 units left mentalis 10 units ??? Total used- 80units ??? Discarded 20 units PFSH Medical History Hyperlipidemia Obesity HTN (hypertension) Surgical History H/O: hysterectomy Family History Mother Heart disease Father Cancer Social History Alcohol intake: current Alcohol intake frequency: holidays/special occasions only Patient Tobacco Use Status: Former Tobacco user Physical Exam Vital Signs: Last Vital Signs Pulse 86 05/27/25 15:39 BP 152/100 H 05/27/25 15:39 Pulse Ox 99 05/27/25 15:39 Oxygen Delivery Method Room Air 05/27/25 15:39 BMI result Body Mass Index 39.6 Const General: cooperative, healthy appearing, comfortable and no acute distress Nutritional Appearance: obese Neuro Other: left hemifacial spasm Office Procedures Botulinum toxin Injection 55835 - Facial Nerve Procedure code (CPT) selection complete Office Meds onabotulinumtoxinA 100 unit solution for injection Performing Provider: Pat Almeida MD Performing Location: [facility] Administered by: Pat Almeida MD on 05/27/25 16:04 Dose Route Admin Location Dispensed Lot Number Expiration Date [facility] Drywall Taper Helper 80 unit subcut 100 units [id number] ALLERGAN/BOTOX Total Dispensed Waste 100 units 20 % Comments: see HPI Assessment & Plan Assessment & Plan (1) Hemifacial spasm of left side of face: Code(s): G51.32 - Clonic hemifacial spasm, left Category: Medical Plan Patient tolerated the procedure well she will call with any side effects Orders: Orders AMB Botulinum toxin Injection Today G51.32 - Clonic hemifacial spasm, left Coding Level of Care Code Est Pt Level 1 (21858) Diagnoses Hemifacial spasm of left side of face G51.32 CPT Codes Botox Injection - Botox 2: 02972 - Facial Nerve ([id number])
--- OUTSIDE RECORDS SUMMARY | 2025-05-27 20:36 | XMS_ITS | Clinical Summary ---
Author Organization [facility] [address] [facility] [facility] Address [address] [place] [address] Phone Care Team Providers Care Arboriculturist Name Role Phone Cielo Pickarda Primary Care Provider [phone] Allergies Active Allergy Reactions Criticality Noted Date Comments Lisinopril Cough Medium 06/03/2015 Medications MULTIVITAMIN ORAL Take 1 Tab by mouth daily. Active hydroCHLOROthiazi de (HYDRODIURIL) 25 mg tabletIndications [...] EACH DAY. 90 tablet 1 01/21/2025 Active atorvastatin (LIPITOR) 20 mg tablet Take 1 tablet (20 mg total) by mouth 1 (one) time each day. 90 tablet 1 03/03/2025 Active Active Problems Problem Noted Date Diagnosed Date Essential hypertension 08/26/2016 Obesity (BMI 30-39.9) 08/26/2016 Hyperlipidemia 01/06/2016 Benign neoplasm of adrenal gland 06/24/2014 Encounters Date Type Department Care Team Description 03/22/2025 9:25 AM EDT - 03/22/2025 11:59 PM EDT Hospital Encounter Radiology Department - [address] [address] Encounter for screening mammogram for breast cancer Discharge Disposition: Home or Self Care 03/03/2025 3:00 PM EDT [facility] [address] [place] [phone] Lucia Lizarraga, SEBLE Essential hypertension (Primary Dx); Mixed hyperlipidemia; Hemifacial spasm of left side of face; Need for vaccination against Streptococcus pneumoniae from Last 3 Months Immunizations Immunization Administration Dates Next Due Influenza Quadravalent, MDCK , 0.5ml, with preservative (Flucelvax) 6mo and older 05/05/2017 Influenza trivalent, 0.5mL, preservative free (Fluarix; FluLaval; Fluzone) ages 6mo and older (Afluria) 3 years and older 06/03/2015,05/22/2014,05/17/2014 Influenza trivalent, MDCK, 0 .5mL, preservative free (Flucelvax) 6mo and older 07/09/2024 Pneumococcal conjugate 20 va lent (Prevnar 20, PCV 20) 2mo and older 03/03/2025 Td, Unspecified 02/26/2004 Tdap Tetanus diptheria acell [...] for your loved ones. For example, children's institution attendant or elderly care for an older adult? [...] Date Recorded What is your living situation? Unrecognized valu e 07/02/2024 Comments No Sex and Gender Information Value Date Recorded Sex Assigned at Not on file Legal Sex Female 8:22 PM EST Gender Identity Not on file Sexual Orientation Not on file Obstetrics History Para Term AB IAB SAB Ectopic Multiple Livin g Live Births 3 3 3 3 Date Outcome GA Total Labor Labor/2nd/3rd Weight Sex Type Anes PTL Sammi A1 A5 Name Clin Term Term Term Last Filed Vital Signs Vital Sign Reading Time Taken Comments Blood Pressure 120/68 03/03/2025 2:51 PM EDT Pulse 90 03/03/2025 2:51 PM EDT Temperature - - Respiratory Rate - - Oxygen Saturation - - Inhaled Oxygen Concentration - - Weight 106 kg (234 lb 6.4 oz) 03/03/2025 2:51 PM EDT Height 162.6 cm (5' 4 ) 07/09/2024 3:44 PM EST Body Mass Index 40.23 07/09/2024 3:44 PM EST Plan of Treatment Upcoming Encounters Date Type Department Care Team (Late st Contact Info) Description 07/15/2025 2:45 PM EST Office Visit Internal Medicine - [address] [phone] Lucia Lizarraga NP [address] [place] [phone] Health Maintenance Due Date Last Done Comments Hepatitis B Vaccines (1 of 3 - 19+ 3-dose series) 1988 RSV Immunization Adult Patients (1 - Risk 50-74 years 1-dose series) 11/28/2019 Zoster Vaccines (1 of 2) 11/28/2019 COVID-19 Vaccine ( - season) 2025 10/22/2022, 2020, 11/04/2020 Influenza Vaccine (#1) 2025 , 05/05/2017, 06/03/2015, Additional history exists Social Influencers of Health Screening 07/02/2025 07/02/2024 Hypertension/CHF/CAD Annual BMP Blood Test 07/09/2025 07/09/2024, 12/11/2020 Breast Cancer Screening 03/22/2027 03/22/20 25, 03/09/2024, 03/09/2024, Additional history exists Cholesterol Screening (Lipid Panel) 07/09/2029 07/09/2024, 12/11/2020 Colorectal Cancer Screening: Colonoscopy 03/31/2031 03/31/2021 DTaP,Tdap,and Td Vaccines (4 - Td or Tdap) 07/09/2034 07/09/2024, 05/17/2014, 02/26/2004 HIV Screening Completed 05/02/2014 Hepatitis C Screening Completed 07/09/2024 Depression Screening Completed 02/24/2025 Pneumococcal Vaccine: 50+ Years Completed 03/03/2025 HIB Vaccines Aged Out No longer eligi [...] Procedure Name Priority Date/Time Associated Diagnosis Comments MG MAMMO DIGITAL SCREENING W JOHANA BILAT Routine 03/22/2025 9:40 AM EDT Encounter for screening mammogram for breast cancer HEPATITIS C ANTIBODY Routine 07/09/2024 4:19 PM EST Encounter for hepatitis C screening test for low risk patient BASIC METABOLIC PANEL Routine 07/09/2024 4:19 PM EST Screening for cholesterol level LIPID PANEL WITH REFLEX TO DIRECT LDL Routine 07/09/2024 4:19 PM EST Screening for cholesterol level COLONOSCOPY Routine 03/31/2021 HIV SCREENING Routine 05/02/2014 from Last 3 Months or Most Recently Relevant to Health Maintenance Results * MG Mammo Digital Screening w Johana bilat (03/22/2025 9:40 AM EDT) Anatomical Region Laterality Modality Breast Bilateral Mammography 03/25/2025 9:35 AM EDT Impressions 03/25/2025 9:38 AM EDT No mammographic evidence for malignancy. BI-RADS CATEGORY: 1 - NEGATIVE RECOMMENDATION: Screening bilateral mammogram is recommended in 1 year. Mammo Location: [facility], [address] [place] [address], [id number], . -------- FINAL REPORT -------- Dictated By: Em Bonilla Dictated Date: 03/25/2025 09:35 ET Assigned Physician: Em Bonilla Reviewed and Electronically Signed By: Em Bonilla Signed Date: 03/25/2025 09:38 ET Workstation ID: [id number] Transcribed By: Self Edit Transcribed Date: 03/25/2025 09:35 ET Narrative 03/25/2025 9:38 AM EDT Bilateral screening mammogram. CLINICAL: 54 years old, Female, routine annual exam. COMPARISON: Prior mammograms, latest 03/09/2024. TECHNIQUE: Bilateral MLO and CC views were obtained digitally with 2-D C views and 3-D mammogram (digital breast tomosynthesis). Computer-aided detection was utilized in evaluation of this exam (CAD). FINDINGS: There is no evidence of suspicious mass or architectural distortion. No worrisome calcifications are evident. There has been no significant change from prior exam(s). BREAST DENSITY: B - There are scattered areas of fibroglandular density. Procedure Note Em Bonilla MD - 03/25/2025 Bilateral screening mammogram. CLINICAL: 54 years old, Female, routine annual exam. COMPARISON: Prior mammograms, latest 03/09/2024. TECHNIQUE: Bilateral MLO and CC views were obtained digitally with 2-D Cviews and 3-D mammogram (digital breast tomosynthesis). Computer-aideddetection was utilized in evaluation of this exam (CAD). FINDINGS: There is no evidence of suspicious mass or architectural distortion. Noworrisome calcifications are evident. There has been no significantchange from prior exam(s). BREAST DENSITY: B - There are scattered areas of fibroglandular density. IMPRESSION: No mammographic evidence for malignancy. BI-RADS CATEGORY: 1 - NEGATIVE RECOMMENDATION: Screening bilateral mammogram is recommended in 1 year. Mammo Location: [facility], [address] [place] [address], [id number], . -------- FINAL REPORT -------- Dictated By: Em Bonilla Dictated Date: 03/25/2025 09:35 ET Assigned Physician: Em Bonilla Reviewed and Electronically Signed By: Em Bonilla Signed Date: 03/25/2025 09:38 ET Workstation ID: [id number] Transcribed By: Self Edit Transcribed Date: 03/25/2025 09:35 ET Mckenzie Pickard DO IMG BI PROCEDURES Final Result * Hepatitis C antibody (07/09/2024 4:19 PM EST) Pathologist [facility] Hepatitis C Antibody Negative Negative LAB CHEMISTRY METHOD 07/09/2024 7:19 PM EST [facility] Blood Venous blood specimen / Unknown Venipuncture / Unknown 07/09/2024 4:19 PM EST 07/09/2024 4:19 PM EST Lucia Lizarraga NP LAB BLOOD ORDERABLES Final Resul t [facility] [address] [place] [address], [place] [phone] * (ABNORMAL) Lipid panel with reflex to direct LDL (07/09/2024 4:19 PM EST) Cholesterol 234(H) 0 - 200 mg/dL LAB CHEMISTRY METHOD 07/09/2024 6:34 PM EST [facility] Triglycerides 240(H) 0 - 150 mg/dL LAB CHEMISTRY METHOD 07/09/2024 6:34 PM [facility] HDL 52 >=40 mg/dL LAB CHEMISTRY METHOD 07/09/2024 6:34 PM [facility] LDL Calculated 134(H) 0 - 100 mg/dL LAB CHEMISTRY METHOD 07/09/2024 6:34 PM [facility] VLDL Cholesterol Jeffrey 48 mg/dL LAB CHEMISTRY METHOD 07/09/2024 6:34 PM [facility] Non HDL Chol. (LDL+VLDL) 182(H) <145 mg/dL LAB CHEMISTRY METHOD 07/09/2024 6:34 PM [facility] Chol/HDL Ratio 4.5(H) 0.0 - 4.4 LAB CHEMISTRY METHOD 07/09/2024 6:34 PM [facility] Blood Venous blood specimen / Unknown Venipuncture / Unknown 07/09/2024 4:19 PM EST 07/09/2024 4:19 PM EST Lucia Lizarraga NP LAB BLOOD ORDERABLES Final Resul t [facility] [address] [place] [address], * Basic metabolic panel (07/09/2024 4:19 PM EST) Sodium 142 133 - 145 mmol/L LAB CHEMISTRY METHOD 07/09/2024 6:32 PM [facility] Potassium 4.3 3.5 - 5.5 mmol/L LAB CHEMISTRY METHOD 07/09/2024 6:32 PM [facility] Chloride 110 96 - 110 mmol/L LAB CHEMISTRY METHOD 07/09/2024 6:32 PM [facility] CO2 26 21 - 32 mmol/L LAB CHEMISTRY METHOD 07/09/2024 6:32 PM EST [facility] Anion Gap 6 3 - 11 LAB CHEMISTRY METHOD 07/09/2024 6:32 PM [facility] Glucose 95 70 - 100 mg/dL LAB CHEMISTRY METHOD 07/09/2024 6:32 PM [facility] BUN 12 5 - 25 mg/dL LAB CHEMISTRY METHOD 07/09/2024 6:32 PM [facility] Creatinine 0.91 0.50 - 1.10 mg/dL LAB CHEMISTRY METHOD 07/09/2024 6:32 PM [facility] eGFR 75 >=60 mL/min/1. 73m2 LAB CHEMISTRY METHOD 07/09/2024 6:32 PM [facility] Comment:Calculation based on the Chronic Kidney Disease Epidemiology Collaboration (CKD-EPI) equation refit without adjustment for race. BUN/Creatinine Ratio 13.2 LAB CHEMISTRY METHOD 07/09/2024 6:32 PM [facility] Calcium 10.0 8.5 - 10.5 mg/dL LAB CHEMISTRY METHOD 07/09/2024 6:32 PM [facility] Blood Venous blood specimen / Unknown Venipuncture / Unknown 07/09/2024 4:19 PM EST 07/09/2024 4:19 PM EST Lucia Lizarraga NP LAB BLOOD ORDERABLES Final Resul t [facility] [address] [place] [address], * Colonoscopy (03/31/2021) Colonoscopy No interpretation , Abstracted Anatomical Region Laterality Modality Other us Historical Provider HEALTH MAINTENANCE Final Result * HIV Screening (05/02/2014) HIV Screening Abstracted us Historical Provider HEALTH MAINTENANCE Final Result from Last 3 Months or Most Recently Relevant to Health Maintenance Insurance [facility] Care Teams Arboriculturist Relationship Specialty Start Date End Date Mckenzie Pickard DO [facility] [place] [address] PCP - General 02/14/23
== END 2025-05-27 16:19 | disposition home or self-care (01) ==
LOC: HO.HSMS 15:28
PROVIDERS: PCP Nurse Practitioner; Visit Provider Psychiatry & Neurology Neurology
DX: G51.32 Clonic hemifacial spasm, left (principal)
CPT/HCPCS: 64612; 99499

== ENCOUNTER → 2025-05-27 15:27 | Outpatient (BNVA) | payer OTHER, SELFPAY | PROVIDERS: PCP Nurse Practitioner; Visit Provider Psychiatry & Neurology Neurology | DX: G51.32 Clonic hemifacial spasm, left (principal) | CPT/HCPCS: 64612; J0585 ==